=== PATIENT | female | born 1960 | race Caucasian/White ===

== ENCOUNTER → 2016-06-24 | Outpatient (CLI) | payer OTHER ==
--- NOTE | 2016-06-25 08:49 | Diagnostic Imaging Report ---
PROCEDURE: MRI left joint lower extremity without contrast. TECHNIQUE: Multiplanar, multisequence non contrast-enhanced MRI of the left lower extremity was accomplished. INDICATION: Knee pain. COMPARISON: There are no prior studies available for comparison. FINDINGS: The reconstructed proton dense parasagittal images reveal that much of the midportion of the posterior horn of the medial meniscus have been torn and have degenerated. 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 There is thinning of the articular surfaces of both the medial femoral condyle and the medial aspect of the proximal tibia. In addition, there is a 6.2 x 7.2 x 11.9 mm osteochondral lesion in the midportion of the articular surface of the medial femoral condyle. There is also a small vague area of increased signal within the medial aspect of the medial femoral condyle on the coronal T2 fat-saturated series. This probably reflects mild bone edema secondary to repetitive trauma. There also appears to be a small tear of the posterior horn of the lateral meniscus. For the most part however, the lateral meniscus is fairly well preserved. There is only mild degenerative disease involving the lateral compartment of the knee joint. The axial images do show that there is fairly severe narrowing of the lateral aspect of the patellofemoral space however. The anterior and posterior cruciate ligaments, the quadriceps and infrapatellar tendons, the collateral ligaments, the biceps femoris tendon, the iliotibial band and the medial and lateral retinaculum are intact. There is no other abnormal signal arising from the osseous structures to suggest bone edema or fracture. However, within the distal femoral diaphysis, there is a 8.1 x 8.7 x 26.7 mm fairly well-circumscribed area of altered signal. I suspect that this is a benign process. If plain films are available they would be helpful to better characterize this finding. If there are no previous studies then a followup plain film exam of the distal femur should be obtained. There is a moderate joint effusion present. There is also small Baldwin's cyst. IMPRESSION: 1. The mid and posterior horn of the medial meniscus have been torn and have partially degenerated. 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 2. There is also a small tear of the posterior horn of the lateral meniscus. 3. The major ligaments and tendons are intact. 4. The lateral compartment is fairly well-maintained but there is fairly severe narrowing of the lateral aspect of the patellofemoral space. 5. The bony lesion in the distal femur is of uncertain etiology although most likely benign. A plain film examination of the distal femur would be recommended for further evaluation, if there are no previous studies available for comparison. Dictated by: Dictated on workstation # [id number]
== END ==
LOC: RAD 16:46 → EDSEX 17:00
PROVIDERS: ATTEND Orthopaedic Surgery
DX: M94.262 Chondromalacia, left knee (principal); M23.222 Derangement of posterior horn of medial meniscus due to old tear or injury, left knee; M23.252 Derangement of posterior horn of lateral meniscus due to old tear or injury, left knee
CPT/HCPCS: 73721

== ENCOUNTER 2018-01-05 10:27 | Emergency (ER) | payer OTHER ==
[~2018-01-05] VITALS: Ht 160 cm; Wt 101.2 kg
[2018-01-05] MEDS ORDERED: 1/2 NS IV SOLUTION 1,000 ML IV ONE (10:30)
[2018-01-05] MEDS ORDERED: ADENOSINE 6 MG/2 ML (ADENOCARD) VIAL IV ONE ×2 (10:33→10:45)
[2018-01-05] MEDS ORDERED: NS IV 1000 ML 1,000 ML IV SCH (10:35)
[2018-01-05] MEDS: 1/2 NS IV SOLUTION 1,000 ML IV STA ×2 (10:38→11:00)
[2018-01-05 10:42] LABS: BASOPHILS % (AUTO) 0 % (0-10); EOSINOPHILS # (AUTO) 0.1 10^3/uL (0.0-0.3); EOSINOPHILS % (AUTO) 1 % (0-10); HEMATOCRIT 43 % (35-52); LYMPHOCYTES # (AUTO) 4.8 X 10^3 (1.0-4.0); LYMPHOCYTES % (AUTO) 51 % (12-44); MEAN CORPUSCULAR HEMOGLOBIN 29 PG (25-34); MEAN CORPUSCULAR HGB CONC 35 G/DL (32-36); MEAN CORPUSCULAR VOLUME 83 FL (80-99); MEAN PLATELET VOLUME 9.7 FL (7.4-10.4); MONOCYTES # (AUTO) 0.6 X 10^3 (0.0-1.0); MONOCYTES % (AUTO) 6 % (0-12); NEUTROPHILS % (AUTO) 42 % (42-75); PLATELET COUNT 371 10^3/uL (130-400); RED BLOOD COUNT 5.21 10^6/uL (4.35-5.85); RED CELL DISTRIBUTION WIDTH 13.6 % (10.0-14.5); WHITE BLOOD COUNT 9.5 10^3/uL (4.3-11.0)
[2018-01-05] MEDS ORDERED: LORazepam INJ 2 MG/ML (ATIVAN) VIAL IVP ONE (10:45)
[2018-01-05] MEDS ORDERED: ASPIRIN 81 MG CHEW (CHILDREN'S ASA) PO ONE (10:45)
--- NOTE | 2018-01-05 10:56 | ED Cardiac General ---
History of Present Illness General Stated Complaint: IRR HEART RATE Source: patient Exam Limitations: no limitations History of Present Illness Date Seen by Provider: Jan 05, 2018 Time Seen by Provider: 10:25 Initial Comments Patient presents to ER by private conveyance with her significant other and a chief complaint she was at work and she is started feeling weak tired short of breath this morning around 7:30 and was just not getting any better. She denies any chest pain but she did have some nausea and dizziness early on. She has no history of coronary artery disease or stroke however she does have a history of high blood pressure for which she uses lisinopril 20 mg and diabetes with peripheral neuropathy on Cymbalta. She does not smoke or have high cholesterol or hypothyroidism. No family history of early onset cardiac disease. Allergies and Home Medications Allergies Coded Allergies: No Known Drug Allergies (Unverified , 01/05/18) Patient Home Medication List Home Medication List Reviewed: Yes Review of Systems Constitutional: No chills, No diaphoresis EENTM: No Blurred Vision, No Double Vision Respiratory: Denies Cough, Denies Shortness of Air Cardiovascular: Denies Chest Pain, Denies Edema, Denies Irregular Heart Rate; Lightheadedness, Palpitations Gastrointestinal: Denies Abdominal Pain, Denies Constipated, Denies Diarrhea; Nausea; Denies Vomiting Genitourinary: Denies Burning, Denies Discharge Musculoskeletal: No back pain, No joint pain Skin: No pruritus, No rash Psychiatric/Neurological: Denies Headache, Denies Numbness, Denies Paresthesia Past Mkliyms-Nokcoq-Tsnjpe Hx Patient Social History Alcohol Use: Denies Use Recreational Drug Use: No Smoking Status: Never a Smoker Physical Exam Vital Signs Capillary Refill : Height, Weight, BMI Height: '" Weight: lbs. oz. kg; BMI Method: General Appearance: WD/WN, Anxious, Mild Distress HEENT: PERRL/EOMI, Normal ENT Inspection, Pharynx Normal, Moist Mucous Membranes Neck: Full Range of Motion, Normal Inspection, Non Tender Respiratory: Chest Non Tender, Lungs Clear, Normal Breath Sounds, No Accessory Muscle Use, No Respiratory Distress Cardiovascular: Regular Rate, Rhythm, No Edema, Tachycardia Gastrointestinal: Normal Bowel Sounds, Non Tender, Soft Neurologic/Psychiatric: Alert, Oriented x3, No Motor/Sensory Deficits Skin: Normal Color, Warm/Dry Progress/Results/Core Measures Results/Orders Lab Results Laboratory Tests Test 01/05/18 10:33 Range/Units White Blood Count 9.5 4.3-11.0 10^3/uL Red Blood Count 5.21 4.35-5.85 10^6/uL Hemoglobin 15.0 11.5-16.0 G/DL Hematocrit 43 35-52 % Mean Corpuscular Volume 83 80-99 FL Mean Corpuscular Hemoglobin 29 25-34 PG Mean Corpuscular Hemoglobin Concent 35 32-36 G/DL Red Cell Distribution Width 13.6 10.0-14.5 % Platelet Count 371 130-400 10^3/uL Mean Platelet Volume 9.7 7.4-10.4 FL Neutrophils (%) (Auto) 42 42-75 % Lymphocytes (%) (Auto) 51 H 12-44 % Monocytes (%) (Auto) 6 0-12 % Eosinophils (%) (Auto) 1 0-10 % Basophils (%) (Auto) 0 0-10 % Neutrophils # (Auto) 4.0 1.8-7.8 X 10^3 Lymphocytes # (Auto) 4.8 H 1.0-4.0 X 10^3 Monocytes # (Auto) 0.6 0.0-1.0 X 10^3 Eosinophils # (Auto) 0.1 0.0-0.3 10^3/uL Basophils # (Auto) 0.0 0.0-0.1 10^3/uL My Orders Orders - IRINA TRAN Ellen 1/2 Ns Iv Solution (0.45% Sodium Chlorid (01/05/18 10:30) Cbc With Automated Diff (01/05/18 10:33) Magnesium (01/05/18 10:33) Chest 1 View, Ap/Pa Only (01/05/18 10:33) Ekg Tracing (01/05/18 10:33) Cardiac Profile 1 (01/05/18 10:33) Comprehensive Metabolic Panel (01/05/18 10:33) Myoglobin Serum (01/05/18 10:33) Protime With Inr (01/05/18 10:33) Partial Thromboplastin Time (01/05/18 10:33) O2 (01/05/18 10:33) Monitor-Rhythm Ecg Trace Only (01/05/18 10:33) Lipid Panel (01/06/18 06:00) Saline Lock/Iv-Start (01/05/18 10:33) Adenosine Injection (Adenocard Injection (01/05/18 10:33) Aspirin Chewable Tablet (Baby Aspirin Ch (01/05/18 10:45) Adenosine Injection (Adenocard Injection (01/05/18 10:45) Saline Lock/Iv-Start (01/05/18 10:35) Ns Iv 1000 Ml (Sodium Chloride 0.9%) (01/05/18 10:35) Lorazepam Injection (Ativan Injection) (01/05/18 10:45) Progress Progress Note : Time: 10:57 Progress Note Patient is a heart rate of 190-200 with narrow complex QRS, monomorphic tachycardia most likely consistent with supraventricular tachycardia. Landed get IV access established start some fluids get her on the defibrillator pads and give adenosine. Initial ECG Impression Date: Jan 05, 2018 Initial ECG Impression Time: 10:31 Initial ECG Rate: 190 Initial ECG Rhythm: SVT Initial ECG Intervals: QRS (100) Initial ECG Impression: SVT Initial ECG Comparisson: No Previous ECG Available Comment Supraventricular tachycardia with narrow complex QRS monomorphic complexes. EKG #1: EKG Time: 10:40 Rate: 162 Rhythm: SVT Intervals: QT (493) ECG Comparisson: Changed ECG Impression: SVT Comment Demonstrates the moment that the Benicar to cold and patient converted into sinus rhythm. EKG #2: EKG Time: 10:43 Rate: 100 Rhythm: S.Tach Intervals: Normal ECG Comparisson: Unchanged ECG Impression: Nonspecific Changes Comment Sinus tachycardia without ST elevation or depression. Consults : Consulting Physician: PATRICE DEVINE MD Consults Notes Discussed case lab EKG findings and he came down and saw the patient. He agrees with plan to give Adenocard. He would like to see the patient in follow-up in one to 2 weeks in the clinic. He has switched her lisinopril to Toprol. Departure Impression Primary Impression: Supraventricular tachycardia Disposition: 01 HOME, SELF-CARE Condition: Improved Departure-Patient Inst. Decision time for Depature: 11:07 Referrals: PATRICE DEVINE MD, JOSEPH F DO (PCP) Primary Care Physician Patient Instructions: Supraventricular Tachycardia (SVT) Add. Discharge Instructions: Drink plenty of fluids. If you have chest pain, shortness of breath or outpatient or feeling of heart racing again you should report to the nearest ER immediately using EMS services. Plan to follow up with Dr. Devine in the clinic in the next 1-2 weeks. Please call his clinic to get an appointment date and time. Copy Copies To 1: PATRICE DEVINE MD, TITUS J Jan 05, 2018 10:56
[2018-01-05 11:03] LABS: ALANINE AMINOTRANSFERASE 19 U/L (0-55); ALBUMIN 4.8 GM/DL (3.2-4.5); ALKALINE PHOSPHATASE 67 U/L (40-136); BILIRUBIN,TOTAL 0.5 MG/DL (0.1-1.0); BUN/CREATININE RATIO 17; CALCIUM 10.3 MG/DL (8.5-10.1); CARBON DIOXIDE 26 MMOL/L (21-32); CHLORIDE 104 MMOL/L (98-107); GFR ESTIMATED 57; GLUCOSE 117 MG/DL (70-105); POTASSIUM 3.6 MMOL/L (3.6-5.0); SODIUM 141 MMOL/L (135-145); TOTAL PROTEIN 7.9 GM/DL (6.4-8.2)
[2018-01-05 11:10] LABS: MYOGLOBIN SERUM 42.2 NG/ML (10.0-92.0)
--- NOTE | 2018-01-05 11:11 | Consultation-Cardiology ---
HPI-Cardiology Cardiology Consultation Date of Consultation 01/05/18 Date of Admission Time Seen by Provider: 11:07 Indication: tachycardia HPI 57-year-old lady with history of hypertension. Patient was in her usual state of health. Having shortness of breath and felt rapid heart rate came into the emergency room and noted to be with a heart rate 89 year-old complex tachycardia, reported similar episode a few months ago that resolved spontaneously. Denied any chest pain. Denied any syncope or near syncopal episode denied any claudication. During my evaluation she was still tachycardic with a heart rate 183. Patient was given a Trevon with appropriate conversion to sinus rhythm Home Medications & Allergies Allergies: Coded Allergies: No Known Drug Allergies (Unverified , 01/05/18) Home Medication List Reviewed: Yes [id number]-[id number]-Kbqlrq Hx Patient Social History Alcohol Use: Occasionally Uses Recreational Drug Use: No Smoking Status: Never a Smoker Recent Foreign Travel: No Recent Infectious Disease Expo: No Past Medical History Past medical history as described below Family Medical History Family Medical Hx Noncontributory to her current condition Constitutional: see HPI, malaise EENTM: see HPI, no symptoms reported Respiratory: see HPI; No cough; dyspnea on exertion; No hemoptysis, No orthopnea, No phlegm; short of breath; No stridor, No wheezing, No other Cardiovascular: see HPI; No chest pain, No edema, No Hx of Intervention; palpitations; No syncope, No vascular heart diseas, No other Gastrointestinal: no symptoms reported, see HPI Genitourinary: no symptoms reported, see HPI Musculoskeletal: no symptoms reported, see HPI Skin: no symptoms reported, see HPI Psychiatric/Neurological: No Symptoms Reported, See HPI Reviewed Test Results Reviewed Test Results Lab Laboratory Tests Test 01/05/18 10:33 Range/Units White Blood Count 9.5 4.3-11.0 10^3/uL Red Blood Count 5.21 4.35-5.85 10^6/uL Hemoglobin 15.0 11.5-16.0 G/DL Hematocrit 43 35-52 % Mean Corpuscular Volume 83 80-99 FL Mean Corpuscular Hemoglobin 29 25-34 PG Mean Corpuscular Hemoglobin Concent 35 32-36 G/DL Red Cell Distribution Width 13.6 10.0-14.5 % Platelet Count 371 130-400 10^3/uL Mean Platelet Volume 9.7 7.4-10.4 FL Neutrophils (%) (Auto) 42 42-75 % Lymphocytes (%) (Auto) 51 H 12-44 % Monocytes (%) (Auto) 6 0-12 % Eosinophils (%) (Auto) 1 0-10 % Basophils (%) (Auto) 0 0-10 % Neutrophils # (Auto) 4.0 1.8-7.8 X 10^3 Lymphocytes # (Auto) 4.8 H 1.0-4.0 X 10^3 Monocytes # (Auto) 0.6 0.0-1.0 X 10^3 Eosinophils # (Auto) 0.1 0.0-0.3 10^3/uL Basophils # (Auto) 0.0 0.0-0.1 10^3/uL Prothrombin Time 13.0 12.2-14.7 SEC INR Comment 1.0 0.8-1.4 Activated Partial Thromboplast Time 29 24-35 SEC Sodium Level 141 135-145 MMOL/L Potassium Level 3.6 3.6-5.0 MMOL/L Chloride Level 104 98-107 MMOL/L Carbon Dioxide Level 26 21-32 MMOL/L Anion Gap 11 5-14 MMOL/L Blood Urea Nitrogen 17 7-18 MG/DL Creatinine 1.00 0.60-1.30 MG/DL Estimat Glomerular Filtration Rate 57 BUN/Creatinine Ratio 17 Glucose Level 117 H 70-105 MG/DL Calcium Level 10.3 H 8.5-10.1 MG/DL Magnesium Level 2.0 1.8-2.4 MG/DL Total Bilirubin 0.5 0.1-1.0 MG/DL Aspartate Amino Transf (AST/SGOT) 19 5-34 U/L Alanine Aminotransferase (ALT/SGPT) 19 0-55 U/L Alkaline Phosphatase 67 40-136 U/L Total Protein 7.9 6.4-8.2 GM/DL Albumin 4.8 H 3.2-4.5 GM/DL Physical Exam Vital Signs Vital Signs - First Documented 01/05/18 10:27 Temp 97.5 Pulse 194 Resp 18 B/P (MAP) 127/67 (87) Pulse Ox 98 O2 Delivery Room Air Capillary Refill : Less Than 3 Seconds Height, Weight, BMI Height: 5'3.00" Weight: 223lbs. oz. 101.448099nm; BMI Method:Stated General Appearance: No Apparent Distress, WD/WN Eyes: Bilateral Eye Normal Inspection, Bilateral Eye PERRL, Bilateral Eye EOMI HEENT: PERRL/EOMI, TMs Normal, Normal ENT Inspection, Pharynx Normal Neck: Full Range of Motion, Normal Inspection, Non Tender, Supple, Carotid Bruit Respiratory: Chest Non Tender, Lungs Clear, Normal Breath Sounds, No Accessory Muscle Use, No Respiratory Distress Cardiovascular: No Edema, No Gallop, No JVD, No Murmur, Normal Peripheral Pulses, Tachycardia Gastrointestinal: Normal Bowel Sounds, No Organomegaly, No Pulsatile Mass, Non Tender, Soft Back: Normal Inspection, No CVA Tenderness, No Vertebral Tenderness Extremity: Normal Capillary Refill, Normal Inspection, Normal Range of Motion, Non Tender, No Calf Tenderness, No Pedal Edema Neurologic/Psychiatric: Alert, Oriented x3, No Motor/Sensory Deficits, Normal Mood/Affect Skin: Normal Color, Warm/Dry Lymphatic: No Adenopathy A/P-Cardiology Admission Diagnosis Supraventricular tachycardia Palpitation Shortness of breath Hypertension Assessment/Plan Supraventricular tachycardia, narrow complex, probably reentry tachycardia, appropriately converted to sinus rhythm after adenosine injection. Still in sinus tachycardia with a heart rate about 100. I will change her lisinopril to Toprol and monitor her as an outpatient Palpitations secondary to SVT, better after conversion Shortness of breath, reporting improvement Hypertension, monitor tolerance to Toprol BMI 39. PATRICE DEVINE MD Jan 05, 2018 11:11
[2018-01-05] MEDS ORDERED: METO-333 PO (11:17)
[2018-01-05 11:20] VITALS: BP 110/75
== END 2018-01-05 11:20 | disposition home or self-care (01) ==
LOC: EDUNIT# 10:27 → ER 10:28
DX: I47.1 Supraventricular tachycardia (principal); E11.42 Type 2 diabetes mellitus with diabetic polyneuropathy
CPT/HCPCS: 36415; 80053; 83735; 83874; 84484; 85025; 85610; 85730; 93005; 93041; 96361; 96374; 96375

== ENCOUNTER → 2018-02-04 | Outpatient (CLI) | payer OTHER ==
[~2018-02-04] MED LIST: CATHETER FLUSH 10 ML SYR IV PRN; FURO40TA4 PO; METO-333 PO; NORT25CA PO
[2018-02-04 08:25] LABS: ALANINE AMINOTRANSFERASE 19 U/L (0-55); ALBUMIN 4.3 GM/DL (3.2-4.5); ALKALINE PHOSPHATASE 59 U/L (40-136); BILIRUBIN,TOTAL 0.3 MG/DL (0.1-1.0); BUN/CREATININE RATIO 20; CALCIUM 9.5 MG/DL (8.5-10.1); CARBON DIOXIDE 21 MMOL/L (21-32); CHLORIDE 107 MMOL/L (98-107); CHOLESTEROL 228 MG/DL (< 200); CREATININE SERUM 0.79 MG/DL (0.60-1.30); GFR ESTIMATED > 60; GLUCOSE 97 MG/DL (70-105); HDL CHOLESTEROL 58 MG/DL (40-60); POTASSIUM 3.9 MMOL/L (3.6-5.0); SODIUM 141 MMOL/L (135-145); TOTAL PROTEIN 6.8 GM/DL (6.4-8.2); TRIGLYCERIDES 151 MG/DL (<150); VLDL CHOLESTEROL 30 MG/DL (5-40)
[2018-02-04 09:43] VITALS: BP 154/83
[2018-02-04 09:47] VITALS: BP 179/84
[2018-02-04 09:52] VITALS: BP 184/88
--- NOTE | 2018-02-04 19:03 | STRESS TEST ---
DATE OF SERVICE: 02/04/2018 LEXISCAN MYOVIEW STRESS TEST REPORT REFERRING PHYSICIAN: Dr. Jadon Neal. Baseline heart rate is 73, baseline blood pressure 150/77. Baseline EKG is sinus rhythm with no ischemic changes. In summary, the patient was injected with 10.97 mCi of technetium-99 Myoview and the resting images were obtained. Then, the patient started exercising with a baseline heart rate, blood pressure and EKG mentioned above. The patient was able to exercise for 4 minutes on Luis Felipe protocol. With peak exercise level, EKG was showing [address] depression in II, III, aVF. Blood pressure was 184/88. During recovery, heart rate and blood pressure returned to baseline. EKG returned to baseline. The resting and stress images were reviewed and compared in the short axis, horizontal long axis, and vertical long axis views. Review of the images showed breast attenuation with mild decreased uptake at the anteroapical segment and anterolateral wall with mild reversibility. SSS is 6, SDS 4, TID value 1.07. On the gated images, the left ventricle appeared to be in normal size with normal contractility. Calculated ejection fraction 58%. CONCLUSION: 1. Fair exercise tolerance, a total of 4 minutes on Luis Felipe protocol, total of 5.6 METS achieving 86% of maximum expected heart rate. 2. Nondiagnostic EKG changes with exercise returned to baseline during recovery. 3. Hypertensive response to exercise returned to baseline during recovery. 4. Breast attenuation with mild ischemia involving the anteroapical and anterolateral wall of the left ventricle. 5. Normal left ventricular size with normal contractility. Calculated ejection fraction 58%. Job ID: [id number] DocumentID: [id number] Dictated Date: 02/04/2018 15:42:58 Flat Sorter Processor Date: 02/04/2018 19:02:38 Dictated By: PATRICE DEVINE MD
== END ==
LOC: CARD 07:35
PROVIDERS: ATTEND Physician Assistant
DX: R06.09 Other forms of dyspnea (principal); I10 Essential (primary) hypertension; R00.2 Palpitations; I47.1 Supraventricular tachycardia; I35.1 Nonrheumatic aortic (valve) insufficiency
CPT/HCPCS: 36415; 78452; 80053; 80061; 93017; 93306

== ENCOUNTER 2018-02-18 06:46 | Day surgery (SDC) | payer OTHER ==
[~2018-02-18] VITALS: Ht 160 cm; Wt 105.2 kg
[2018-02-18] VITALS (10 sets, daily range): BP systolic 121–145; BP diastolic 65–89
[~2018-02-18 06:46] MED LIST changes: -CATHETER FLUSH 10 ML SYR IV PRN; -FURO40TA4 PO; -NORT25CA PO
[2018-02-18] MEDS ORDERED: NS IV 1000 ML 1,000 ML IV SCH ×2 (06:55→08:25)
[2018-02-18] MEDS ORDERED: HEParin (CATH LAB) 2,000 ML IV ONE (06:56)
[2018-02-18] MEDS ORDERED: NS IV 1000 ML 1,000 ML ONE (06:56)
[2018-02-18] MEDS ORDERED: LIDOCAINE 1% INJ 20 ML 20 ML VIAL ONE (06:56)
[2018-02-18 07:24] LABS: BILIRUBIN,URINE NEGATIVE (NEGATIVE); CLARITY,URINE CLEAR; COLOR,URINE YELLOW; GLUCOSE, URINE (UA) NEGATIVE (NEGATIVE); HEMOGLOBIN 13.7 G/DL (11.5-16.0); KETONES,URINE NEGATIVE (NEGATIVE); LEUKOCYTE ESTERASE ,URINE 1+ (NEGATIVE); MEAN PLATELET VOLUME 9.7 FL (7.4-10.4); NITRITE,URINE NEGATIVE (NEGATIVE); PH,URINE 5 (5-9); PROTEIN,URINE 1+ (NEGATIVE); RED BLOOD COUNT 4.73 10^6/uL (4.35-5.85); RED CELL DISTRIBUTION WIDTH 13.3 % (10.0-14.5); UROBILINOGEN,URINE NORMAL (NORMAL); WHITE BLOOD COUNT 9.1 10^3/uL (4.3-11.0)
--- NOTE | 2018-02-18 07:25 | Cardiac Procedure Note-CS/ASA ---
Pre-Procedure Note Pre-Op Procedure Note H&P Reviewed The H&P was reviewed, patient examined and no changes noted. Date H&P Reviewed: Feb 18, 2018 Time H&P Reviewed: 07:25 Conscious Sedation Pre-Proced Time Reviewed: 07:25 ASA Class: 3 Airway Mallampati Classification: ([place] appropriate class) I. II. III, IV Lungs Heart ASA score ASA 1: a normal healthy patient ASA 2: a patient with a mild systemic disease (mid diabetes, controlled hypertension, obesity x ASA 3: a patient with a severe systemic disease that limits activity (angina , COPD, prior Myocardial infarction) ASA 4: a patient with an incapacitating disease that is a constant threat to life (CHF, renal failure) ASA 5: a moribund patient not expected to survive 24 hrs. (ruptured aneurysm) ASA 6: a declared brain patient whose organs are being harvested. For emergent operations, add the letter E after the classification Grade 3 Sedation Plan: Analgesia, Amnesia, Plan communicated to team members, Discussed options with patient/fam, Discussed risks with patient/fam Note The patient is an appropriate candidate to undergo the planned procedure, sedation, and anesthesia. The patient immediately re-assessed prior to indication. PATRICE DEVINE MD Feb 18, 2018 07:25
[2018-02-18] MEDS ORDERED: MIDAZOLAM 5 MG/5 ML (VERSED) VIAL ONE (07:28)
[2018-02-18] MEDS ORDERED: HEParin 1000 UNIT/ML (10ML VIAL) FOR BOLUS ONE (07:28)
[2018-02-18] MEDS ORDERED: fentaNYL INJECTION 100 MCG/2 ML AMP ONE (07:28)
[2018-02-18] MEDS ORDERED: NORT25CA PO (07:31)
[2018-02-18] MEDS ORDERED: FURO40TA4 PO (07:31)
[2018-02-18 07:43] LABS: ALANINE AMINOTRANSFERASE 14 U/L (0-55); ALBUMIN 4.5 GM/DL (3.2-4.5); ALKALINE PHOSPHATASE 61 U/L (40-136); BILIRUBIN,TOTAL 0.6 MG/DL (0.1-1.0); BUN/CREATININE RATIO 20; CALCIUM 9.4 MG/DL (8.5-10.1); CARBON DIOXIDE 25 MMOL/L (21-32); CHLORIDE 105 MMOL/L (98-107); CREATININE SERUM 0.87 MG/DL (0.60-1.30); GFR ESTIMATED > 60; GLUCOSE 96 MG/DL (70-105); POTASSIUM 3.7 MMOL/L (3.6-5.0); SODIUM 141 MMOL/L (135-145); TOTAL PROTEIN 7.1 GM/DL (6.4-8.2)
[2018-02-18] MEDS ORDERED: FLU QUADRIvalent (5+ YOA) 2018-2019 (AFLURIA) 0.5 ML IM ONE (07:45)
[2018-02-18 07:50] LABS: BACTERIA,URINE FEW /HPF; SQUAMOUS EPITHELIAL CELL,UR 25-50 /HPF; WBC,URINE 0-2 /HPF
--- NOTE | 2018-02-18 08:24 | Diagnostic Imaging Report ---
INDICATION: Abnormal stress test and pre-heart catheterization. TIME OF EXAM: 7:09 AM No prior studies are available for comparison. FINDINGS: The heart size is normal. The pulmonary vascularity is unremarkable. The lungs are clear. No infiltrate, effusion or pneumothorax is detected. IMPRESSION: No acute cardiopulmonary process is detected. Dictated by: Dictated on workstation # [id number]
--- NOTE | 2018-02-18 08:26 | Discharge Inst-Post CATH ---
Discharge Inst-CATH Post Cardiac Cath D/C Inst Follow Up/Plan Appointment with Dr. Anderson's office in 2-4 weeks CARDIAC CATH DISCHARGE INSTRUCTIONS *Hold Metformin for 48 hours post heart cath. ACTIVITY * Go Home directly and rest. * Limit activity of the leg (or wrist if it was used) for 7 days including aerobics, swimming, jogging, bicycling, etc. * Restrict stair-climbing for 7 days if possible, if not, climb up with your non -cath leg, then bring together on the same step. * Avoid lifting, pushing, pulling or excessive movement of the affected extremity for 7 days. * Customary sexual activity may be resumed after 2 days-use caution not to use a position that strains or causes pain to the affected extremity. * No driving for 24 hours. * NO SMOKING. * Avoid straining for bowel movements for 7 days. * Gentle walking on level ground is allowed. * Returning to work will depend on the type of procedure and the results. Your doctor will discuss this with you. CALL YOUR DOCTOR FOR ANY OF THE FOLLOWING: *If bleeding from the puncture site occurs- Apply gentle pressure to site with clean cloth and call your doctor or EMS. * If a knot or lump forms under the skin, increases in size, or causes pain. * If bruising appears to be worsening or moving further down your leg instead of disappearing. * Temperature above 101 F. CARE OF YOUR GROIN INCISION; * Bruising or purple discoloration of the skin near the puncture site is common. * You may shower only, no bathtub bathing for 5 days. Be careful to avoid slipping as your leg may feel stiff. * If a closure device was used on your femoral artery, please see the attached guide regarding care of the device and your leg. * REMOVE the dressing from your groin the next day after your procedure in the shower. CARE OF YOUR WRIST INCISION; * Bruising or purple discoloration of the skin near the puncture site is common. * You may shower. * DO NOT submerge wrist. * Remove dressing in 24 hours. PATRICE ANDERSON MD Feb 18, 2018 08:26
[2018-02-18] MEDS ORDERED: PATIENT MAY USE OWN MEDS, ALL PO SCH (08:30)
--- NOTE | 2018-02-18 08:30 | Cardiac Cath Report ---
Cardiac Cath Report Physician (s)/Rn Heart (s) Physician PATRICE DEVINE MD Pre-Procedure Diagnosis Pre-Procedure Diagnosis: Coronary artery disease Post-Procedure Note Procedure Start Date: Feb 18, 2018 Name of Procedure: Left heart catheterization Findings/Procedure Note PROCEDURE NOTE: After explaining the procedure to the patient, all pros and cons were explained , all questions were answered. The patient signed the consent and then she was placed on the cardiac catheterization laboratory. Groin was prepped SL fashion local anesthesia was used. Sheath placed in the right femoral artery. AL 1 used to access the left coronary system, JR catheter for the right coronary system, catheter was crossed to the left ventricular cavity, pressure was measured, no left ventriculogram was done. At the end of the procedure the sheath was removed. Closure device was used FINDINGS: Hemodynamics LV 129/11, end-diastolic pressure of 11 Aorta 124/64 mean of 89 ANATOMY: Left Main has superior origin, mild irregularity, no obstructive disease Left Anterior Descending has mild disease nonobstructive disease Left Circumflex has mild disease obstructive disease Right Coronory Artery is dominant with mild disease nonobstructive disease CONCLUSION: 1. Superior origin of the left main with mild disease proximally nonobstructive disease otherwise mild coronary artery disease 2. Normal left ventricular end-diastolic pressure DISCUSSION AND RECOMMENDATION: Abnormal stress test is probably due to extracardiac attenuation, no significant structural disease was noted, medical therapy is recommended Anesthesia Type: Conscious Sedation Estimated blood loss (mL): 10 ml Contrast Amount: 40 ml Total Radiation Dose: 244 mGy Post-Procedure Diagnosis Post-operative diagnosis: Chest pain nonspecific etiology Coronary artery disease Hypertension PATRICE DEVINE MD Feb 18, 2018 08:29
== END 2018-02-18 13:05 | disposition home or self-care (01) ==
LOC: CATH 06:46 → SDC 08:55 → CATH 13:05
PROVIDERS: ATTEND Internal Medicine Cardiovascular Disease
DX: R07.9 Chest pain, unspecified (principal); I25.10 Atherosclerotic heart disease of native coronary artery without angina pectoris; I10 Essential (primary) hypertension; E66.01 Morbid (severe) obesity due to excess calories; I47.1 Supraventricular tachycardia; R00.2 Palpitations; R06.09 Other forms of dyspnea; E78.5 Hyperlipidemia, unspecified; Z82.49 Family history of ischemic heart disease and other diseases of the circulatory system; Z79.899 Other long term (current) drug therapy; Z68.41 Body mass index [BMI] 40.0-44.9, adult
CPT/HCPCS: 36415; 71045; 80053; 81000; 85027; 85610; 85730; 87081; 93458

== ENCOUNTER 2021-02-12 12:36 | Outpatient (CLI) | payer OTHER ==
[~2021-02-12] VITALS: Ht 160 cm; Wt 117.0 kg
[2021-02-12 12:35] VITALS: BP 137/59
[~2021-02-12 12:36] MED LIST changes: +FURO40TA4 PO; +NORT25CA PO
[2021-02-12] MEDS ORDERED: ONDANSETRON 4 MG/2 ML (SDV) Z0FRAN IV PRN (12:45)
[2021-02-12] MEDS ORDERED: CASIRIVIMAB/IMDEVIMAB 1,200 MG in NS (IVPB) 250 ML IV ONE (12:45)
[2021-02-12] MEDS ORDERED: diphenhydrAMINE 50 MG/ML INJ (BENADRYL) IV PRN (12:45)
[2021-02-12] MEDS ORDERED: EPINEPHrine INJECTION 1 MG/ML AMP IM PRN (12:45)
[2021-02-12] MEDS ORDERED: ACETAMINOPHEN 500 MG TAB (TYLENOL) PO PRN (12:45)
[2021-02-12 13:45] VITALS: BP 128/62
== END 2021-02-12 14:23 | disposition home or self-care (01) ==
LOC: INFUSION 12:36
PROVIDERS: ATTEND Physician Assistant
DX: Z23 Encounter for immunization (principal); U07.1 COVID-19

== ENCOUNTER → 2021-05-17 | Outpatient (CLI) | payer OTHER | LOC: CARD 09:00 | PROVIDERS: ATTEND Physician Assistant | DX: I11.9 Hypertensive heart disease without heart failure (principal); I35.1 Nonrheumatic aortic (valve) insufficiency | CPT/HCPCS: 93306 ==

== ENCOUNTER → 2022-06-11 | Outpatient (CLI) | payer OTHER | LOC: CARD 09:30 | PROVIDERS: ATTEND Internal Medicine Cardiovascular Disease | DX: I11.9 Hypertensive heart disease without heart failure (principal); I35.1 Nonrheumatic aortic (valve) insufficiency; I35.8 Other nonrheumatic aortic valve disorders | CPT/HCPCS: 93306 ==